=== PATIENT | male | born 1980 | race Caucasian/White ===

== ENCOUNTER 2021-07-30 15:19 | Outpatient (CLI) | payer OTHER, SELFPAY ==
--- NOTE | 2021-07-30 15:40 | XR_ITS ---
WS: [id number] Right foot, 3 views, 07/30/2021 Clinical Data: 3RD TOE PAIN Comparison: None. Findings: No fractures or dislocations are seen. No bone destruction or erosion is noted. The joint spaces and soft tissues are normal. XR/XR foot RT min 3V* [id number] Impression: Negative right foot.
== END 2021-07-30 15:20 | disposition home or self-care (01) ==
PROVIDERS: PCP Family Medicine; Visit Provider Nurse Practitioner Family
DX: M79.674 Pain in right toe(s) (principal)
CPT/HCPCS: 73630